=== PATIENT | female | born 1970 | race Caucasian/White ===

== ENCOUNTER 2019-07-26 07:08 | Emergency (ER) | payer MEDICAID ==
[~2019-07-26] VITALS: Ht 157.5 cm; Wt 93.0 kg
[2019-07-26 07:27] VITALS: BP 146/80
[2019-07-26] MEDS ORDERED: normal saline 1000ML IV soln IVB ONE (07:35)
[2019-07-26] MEDS ORDERED: ketorolac trometh. 30mg/ml inj. IV ONE (07:35)
[2019-07-26] MEDS ORDERED: ondansetron/PF 4mg/2ml inj IV ONE (07:35)
[2019-07-26 07:57] LABS: URINE HCG NEGATIVE (NEG)
[2019-07-26 08:04] LABS: ALANINE AMINOTRANSFERASE 63 U/L (12-78); ALBUMIN 3.5 G/DL (3.4-5.0); ALBUMIN/GLOBULIN RATIO 0.8 (1.1-1.5); ALKALINE PHOSPHATASE 81 IU/L (46-116); ANION GAP 9 (8-16); ASPARTATE AMINO TRANSFERASE 35 U/L (10-37); BILIRUBIN,TOTAL 0.3 MG/DL (0.1-1.0); BLOOD UREA NITROGEN 15 MG/DL (7-18); BUN/CREATININE RATIO 18.1 (6.6-38.0); CHLORIDE 105 MMOL/L (99-107); CREATININE 0.83 MG/DL (0.40-0.90); GLUCOSE 153 MG/DL (70-104); LIPASE 241 U/L (73-393); SODIUM 140 MMOL/L (135-145); TOTAL CARBON DIOXIDE 25.6 MMOL/L (24-32); TOTAL PROTEIN 7.7 G/DL (6.4-8.2); eGFR 73 ML/MIN
[2019-07-26 08:05] LABS: BASOPHILS # (AUTO) 0.1 X10'3 (0-0.2); BASOPHILS % (AUTO) 0.7 % (0-1); EOSINOPHILS # (AUTO) 0.1 X10'3 (0-0.9); EOSINOPHILS % (AUTO) 0.9 % (0-6); HEMATOCRIT 48.3 % (35.0-45.0); HEMOGLOBIN 16.2 g/dl (12.0-16.0); LYMPHOCYTES # (AUTO) 1.9 X10'3 (1.1-4.8); LYMPHOCYTES % (AUTO) 18.3 % (21-51); MEAN CORPUSCULAR HEMOGLOBIN 28.9 PG (27.0-31.0); MEAN CORPUSCULAR HGB CONC 33.5 g/dL (33.0-36.5); MEAN CORPUSCULAR VOLUME 86.3 FL (78-98); MEAN PLATELET VOLUME 8.6 FL (7.4-10.4); MONOCYTES # (AUTO) 0.7 X10'3 (0-0.9); MONOCYTES % (AUTO) 6.8 % (2-12); NEUTROPHILS # (AUTO) 7.5 X10'3 (1.8-7.7); NEUTROPHILS % (AUTO) 73.3 % (42-75); PLATELET COUNT 342 X10'3 (140-440); RED BLOOD COUNT 5.59 X10'6 (4.20-5.60); WHITE BLOOD COUNT 10.3 X10'3 (4.5-11.0)
[2019-07-26 08:16] LABS: COLOR,URINE YELLOW (Yellow); GLUCOSE, URINE NEGATIVE (Neg); KETONES,URINE NEGATIVE (Neg); LEUKOCYTE ESTERASE ,URINE NEGATIVE (Neg); NITRITES, URINE NEGATIVE (Neg); OCCULT BLOOD,URINE NEGATIVE (Neg); PROTEIN,URINE NEGATIVE (Neg); UROBILINOGEN,URINE 0.2 E.U/dL (0.2-1.0)
[2019-07-26 08:22] LABS: UA COLLECTION TYPE CLN CATCH MIDSTREAM
[2019-07-26 08:23] LABS: CLARITY,URINE SLIGHTLY CLOUDY (Clear)
[2019-07-26 08:32] LABS: SQUAMOUS EPITHELIAL CELL,UR MODERATE /LPF (FEW)
[2019-07-26 08:33] LABS: HYALINE CASTS 0-3 /LPF (NEGATIVE)
[2019-07-26 08:34] LABS: TRANSITIONAL EPI CELLS,URINE FEW /HPF
[2019-07-26 08:35] LABS: BACTERIA,URINE FEW /HPF (Neg); MUCUS STRANDS MODERATE /LPF (Neg); RBC,URINE 0-2 /HPF (0-2)
[2019-07-26 08:36] LABS: WBC,URINE 0-4 /HPF (0-4)
[2019-07-26] MEDS ORDERED: sucralfate 1gm/10ml UD suspension PO STA (09:30)
[2019-07-26] MEDS ORDERED: mag hydrox/Alum hydrox/simeth 30ml oral suspension PO ONE (09:30)
[2019-07-26] MEDS ORDERED: LIDOcaine Viscous 15ml cup MM ONE (09:30)
[2019-07-26] MEDS ORDERED: SUCR1TAB34 PO (09:38)
== END 2019-07-26 10:10 | disposition home or self-care (01) ==
LOC: ER 07:09
DX: K29.70 Gastritis, unspecified, without bleeding (principal); J45.909 Unspecified asthma, uncomplicated; F31.9 Bipolar disorder, unspecified; F12.90 Cannabis use, unspecified, uncomplicated; Z90.710 Acquired absence of both cervix and uterus; Z98.890 Other specified postprocedural states; Z88.8 Allergy status to other drugs, medicaments and biological substances; Z88.1 Allergy status to other antibiotic agents; Z91.040 Latex allergy status
CPT/HCPCS: 36415; 74176; 76700; 80053; 81001; 81025; 83690; 85025; 96374; 96375; 99285; J1885; J2405; J7030

== ENCOUNTER 2019-08-08 15:28 | Emergency (ER) | payer MEDICAID ==
[~2019-08-08] VITALS: Ht 157.5 cm; Wt 96.0 kg
[~2019-08-08 15:28] MED LIST: SUCR1TAB34 PO
[2019-08-08 16:12] VITALS: BP 138/66
--- NOTE | 2019-08-08 16:50 | NUR ---
ORTIZ, PATIENT'S RIDE CAN BE CALLED AT [phone]
[2019-08-08] MEDS ORDERED: proCHLORperazine 10 MG/2 ml inj IV ONE (17:50)
[2019-08-08] MEDS ORDERED: diphenhydrAMINE 50 mg/ml inj IV ONE (17:50)
[2019-08-08] MEDS ORDERED: normal saline 1000ml 1,000 ML IV ONE (17:50)
[2019-08-08] MEDS ORDERED: SUMA50TA PO (18:35)
== END 2019-08-08 19:22 | disposition home or self-care (01) ==
LOC: ER 15:28
DX: G43.909 Migraine, unspecified, not intractable, without status migrainosus (principal); J45.909 Unspecified asthma, uncomplicated; F31.9 Bipolar disorder, unspecified; F12.90 Cannabis use, unspecified, uncomplicated; Z90.710 Acquired absence of both cervix and uterus; Z98.890 Other specified postprocedural states; Z72.89 Other problems related to lifestyle; Z88.1 Allergy status to other antibiotic agents; Z88.8 Allergy status to other drugs, medicaments and biological substances; Z91.040 Latex allergy status; Z79.899 Other long term (current) drug therapy
CPT/HCPCS: 96361; 96374; 96375; 99284; J0780; J1200; J7030

== ENCOUNTER 2019-08-15 13:25 | Inpatient (IN) | payer MEDICAID ==
[~2019-08-15] VITALS: Ht 157.5 cm; Wt 101.6 kg
[~2019-08-15 13:25] MED LIST changes: +SUMA50TA PO
[2019-08-15 14:24] LABS: BASOPHILS % (AUTO) 0.3 % (0-1); EOSINOPHILS # (AUTO) 0.1 X10'3 (0-0.9); EOSINOPHILS % (AUTO) 0.8 % (0-6); HEMATOCRIT 42.5 % (35.0-45.0); HEMOGLOBIN 14.3 g/dl (12.0-16.0); LYMPHOCYTES # (AUTO) 1.9 X10'3 (1.1-4.8); LYMPHOCYTES % (AUTO) 13.2 % (21-51); MEAN CORPUSCULAR HGB CONC 33.6 g/dL (33.0-36.5); MEAN CORPUSCULAR VOLUME 89.2 FL (78-98); MEAN PLATELET VOLUME 8.4 FL (7.4-10.4); MONOCYTES # (AUTO) 0.6 X10'3 (0-0.9); MONOCYTES % (AUTO) 4.1 % (2-12); NEUTROPHILS # (AUTO) 11.8 X10'3 (1.8-7.7); NEUTROPHILS % (AUTO) 81.6 % (42-75); PLATELET COUNT 273 X10'3 (140-440); RED BLOOD COUNT 4.76 X10'6 (4.20-5.60); RED CELL DISTRIBUTION WIDTH 13.8 % (11.5-14.5); WHITE BLOOD COUNT 14.5 X10'3 (4.5-11.0)
[2019-08-15 14:39] LABS: ALANINE AMINOTRANSFERASE 57 U/L (12-78); ALBUMIN 3.4 G/DL (3.4-5.0); ALBUMIN/GLOBULIN RATIO 0.8 (1.1-1.5); ALKALINE PHOSPHATASE 79 IU/L (46-116); ANION GAP 9 (8-16); ASPARTATE AMINO TRANSFERASE 22 U/L (10-37); BILIRUBIN,TOTAL 0.3 MG/DL (0.1-1.0); BLOOD UREA NITROGEN 18 MG/DL (7-18); BUN/CREATININE RATIO 20.2 (6.6-38.0); CALCIUM 8.8 MG/DL (8.5-10.1); CHLORIDE 103 MMOL/L (99-107); CREATININE 0.89 MG/DL (0.40-0.90); GLUCOSE 216 MG/DL (70-104); POTASSIUM 3.8 MMOL/L (3.5-5.1); SODIUM 139 MMOL/L (135-145); TOTAL CARBON DIOXIDE 26.7 MMOL/L (24-32); TOTAL PROTEIN 7.6 G/DL (6.4-8.2); eGFR 67 ML/MIN
[2019-08-15] MEDS ORDERED: nitroGLYCERIN 0.4mg SUBLingual tab SL PRN ×3 (15:10→17:00)
[2019-08-15] MEDS ORDERED: aspirin 81mg tab.chew PO ONE (15:10)
[2019-08-15 15:42] LABS: CLARITY,URINE SLIGHTLY CLOUDY (Clear); COLOR,URINE STRAW (Yellow); GLUCOSE, URINE NEGATIVE (Neg); KETONES,URINE NEGATIVE (Neg); LEUKOCYTE ESTERASE ,URINE NEGATIVE (Neg); NITRITES, URINE NEGATIVE (Neg); OCCULT BLOOD,URINE NEGATIVE (Neg); PH,URINE 5.5 (4.8-8.0); PROTEIN,URINE NEGATIVE (Neg); UROBILINOGEN,URINE 0.2 E.U/dL (0.2-1.0)
[2019-08-15 15:49] LABS: D-DIMER 0.44 MG/L FEU (0-0.50)
[2019-08-15 15:49] LABS: URINE AMPHETAMINE SCREEN NEGATIVE (Neg); URINE BARBITUATE SCREEN NEGATIVE (Neg); URINE BENZODIAZEPINES SCREEN NEGATIVE (Neg); URINE CANNABINOID SCREEN POSITIVE (Neg); URINE COCAINE SCREEN NEGATIVE (Neg); URINE METHADONE SCREEN NEGATIVE (Neg); URINE OPIATE SCREEN NEGATIVE (Neg); URINE PHENCYCLIDINE SCREEN NEGATIVE (Neg)
[2019-08-15 15:50] LABS: UA COLLECTION TYPE CLN CATCH MIDSTREAM
[2019-08-15 15:51] LABS: SQUAMOUS EPITHELIAL CELL,UR MANY /LPF (FEW)
[2019-08-15 15:52] LABS: BACTERIA,URINE FEW /HPF (Neg); MUCUS STRANDS FEW /LPF (Neg); RBC,URINE 0-2 /HPF (0-2); WBC,URINE 0-4 /HPF (0-4)
[2019-08-15 15:53] LABS: CAL OXALATE CRYSTALS 1+ /HPF (NEGATIVE)
[2019-08-15] MEDS ORDERED: CefTRIAXone 2gm/D5W 50ml 50 ML IV ONE (16:00)
[2019-08-15] MEDS ORDERED: CefTRIAXone inj 2,000 MG in normal saline 100ml IV soln 100 ML IV ONE (16:05)
[2019-08-15] MEDS ORDERED: ONDA-103 PO (16:37)
[2019-08-15] MEDS ORDERED: CARI1.5C PO (16:37)
[2019-08-15] MEDS ORDERED: LISI-600 PO (16:37)
[2019-08-15] MEDS ORDERED: CLON-473 PO (16:37)
[2019-08-15] MEDS ORDERED: ALBU8.5H8 IH (16:37)
[2019-08-15] MEDS ORDERED: PANT40TA4 PO (16:37)
[2019-08-15] MEDS ORDERED: SERT50TA10 PO (16:37)
[2019-08-15] MEDS ORDERED: DOCU-267 PO (16:37)
[2019-08-15] MEDS ORDERED: PRAZ2CAP2 PO (16:37)
[2019-08-15] MEDS ORDERED: QUET100T33 PO (16:37)
[2019-08-15] MEDS ORDERED: ESTR1PAT82 TP (16:37)
[2019-08-15] MEDS ORDERED: SUMA50TA17 PO (16:37)
[2019-08-15] MEDS ORDERED: BECL10.62 INH (16:37)
[2019-08-15] MEDS ORDERED: magnesium 4gm in 100ml NS 100 ML IV PRN (17:00)
[2019-08-15] MEDS ORDERED: potassium Cl 20 mEq SR tablet PO PRN ×2 (17:00)
[2019-08-15] MEDS ORDERED: magnesium hydroxide 30ml (MOM) UD suspension PO PRN (17:00)
[2019-08-15] MEDS ORDERED: magnesium 2GM in 50ml NS 50 ML IV PRN (17:00)
[2019-08-15] MEDS ORDERED: regadenoson 0.4mg/5ml syringe IV ONE (17:00)
[2019-08-15] MEDS ORDERED: aminophylline 250mg/10ml inj. IV PRN (17:00)
[2019-08-15] MEDS ORDERED: acetaminophen 325mg tablet PO PRN ×2 (17:00)
[2019-08-15] MEDS ORDERED: magnesium Cl slow-release 64mg tablet PO PRN (17:00)
[2019-08-15] MEDS ORDERED: metoprolol tartrate 1mg/ml inj IV PRN (17:00)
[2019-08-15] MEDS ORDERED: morphine 2 MG/ML inj. syringe IV PRN ×2 (17:00)
[2019-08-15] MEDS ORDERED: potassium CL 10mEq/100ml bag 100 ML IV PRN ×2 (17:00)
[2019-08-15] MEDS ORDERED: ondansetron/PF 4mg/2ml inj IV PRN (17:00)
[2019-08-15] MEDS ORDERED: metoclopramide 5 mg/ml inj IV PRN (17:00)
[2019-08-15] MEDS ORDERED: mag hydrox/Alum hydrox/simeth 30ml oral suspension PO PRN (17:00)
[2019-08-15] MEDS: normal saline 1000ml 1,000 ML IV SCH (18:00)
[2019-08-15] MEDS ORDERED: SUMAtriptan 25 MG tablet PO PRN (18:35)
[2019-08-15] MEDS ORDERED: albuterol 2.5 MG/3 ML nebule NEB PRN (18:35)
[2019-08-15] MEDS ORDERED: non-formulary drug (Ondansetron HCl 1 TAB) PO PRN (18:35)
[2019-08-15] MEDS ORDERED: cloNIDine 0.1 mg tablet PO PRN (18:35)
[2019-08-15 19:01] LABS: H PYLORI ANTIBODY NEGATIVE (Neg)
--- NOTE | 2019-08-15 19:05 | NUR ---
Patient in room ED 9. I have received report from Huan SIN in ER and had the opportunity to ask questions and assume patient care. This pt will be going to room 3021S
--- NOTE | 2019-08-15 19:10 | NUR ---
Pt arrived on floor, stable with no chest pain at this time. Nasal swab collected, telemetry monitoring applied, Vital signs obtained T-99.0 HR- 81 o2- 95 RA R- 20 BP 159/91 left arm. Will continue to assess and monitor closely.
[2019-08-15] MEDS: docusate sod 100mg capsule PO SCH (19:45)
[2019-08-15] MEDS ORDERED: famotidine 20mg tablet PO SCH ×2 (20:00)
[2019-08-15] MEDS: K and/or MAG REPLACEMENT MC SCH (20:00)
[2019-08-15] MEDS: famotidine 10mg tablet PO SCH (20:22)
[2019-08-15] MEDS ORDERED: sertraline 50mg tablet PO SCH (21:00)
[2019-08-15] MEDS ORDERED: CARIPRAZINE 1.5 MG CAPSULE PO SCH (21:00)
[2019-08-15] MEDS ORDERED: budesonide 0.5mg/2ml UD nebule IH SCH (21:00)
[2019-08-15] MEDS ORDERED: prazosin 1mg capsule PO SCH (21:00)
[2019-08-15] MEDS ORDERED: temazepam 15mg capsule PO PRN (21:00)
[2019-08-15 22:00] VITALS: BP 112/61
[2019-08-16] VITALS (12 sets, daily range): BP systolic 92–136; BP diastolic 42–79
[2019-08-16] MEDS: HYDROcodone/acetaminophen 5mg/325mg tablet PO PRN ×2 (00:47→04:55)
[2019-08-16 01:38] LABS: HEMATOCRIT 37.9 % (35.0-45.0); HEMOGLOBIN 12.9 g/dl (12.0-16.0); MEAN CORPUSCULAR HEMOGLOBIN 30.3 PG (27.0-31.0); MEAN CORPUSCULAR HGB CONC 34.1 g/dL (33.0-36.5); MEAN CORPUSCULAR VOLUME 88.8 FL (78-98); MEAN PLATELET VOLUME 8.2 FL (7.4-10.4); PLATELET COUNT 234 X10'3 (140-440); RED BLOOD COUNT 4.27 X10'6 (4.20-5.60); RED CELL DISTRIBUTION WIDTH 13.8 % (11.5-14.5); WHITE BLOOD COUNT 8.7 X10'3 (4.5-11.0)
[2019-08-16 01:50] LABS: ALBUMIN 3.1 G/DL (3.4-5.0); ANION GAP 9 (8-16); BLOOD UREA NITROGEN 17 MG/DL (7-18); BUN/CREATININE RATIO 23.3 (6.6-38.0); CALCIUM 8.2 MG/DL (8.5-10.1); CHLORIDE 104 MMOL/L (99-107); CHOL/HDL RATIO 6.8 (0.00-4.99); CHOLESTEROL 243 MG/DL (0-200); CREATININE 0.73 MG/DL (0.40-0.90); GLUCOSE 115 MG/DL (70-104); HDL CHOLESTEROL 36 MG/DL (35-60); LDL CHOLESTEROL 106 MG/DL (50-100); MAGNESIUM 1.7 MG/DL (1.5-2.4); POTASSIUM 3.9 MMOL/L (3.5-5.1); SODIUM 140 MMOL/L (135-145); TRIGLYCERIDES 472 MG/DL (20-135); eGFR 85 ML/MIN
[2019-08-16] MEDS: normal saline 1000ml 1,000 ML IV SCH ×2 (02:57→10:35)
--- NOTE | 2019-08-16 06:15 | NUR ---
Patient in room PCU 3027. I have received report from Selam SIN and had the opportunity to ask questions and assume patient care.
--- NOTE | 2019-08-16 06:26 | NUR ---
Problems reprioritized. Patient report given, questions answered & plan of care reviewed with Darline Trent and Shelby TRENT.
[2019-08-16] MEDS ORDERED: pantoprazole 40mg Tablet.DR PO SCH (07:30)
[2019-08-16] MEDS ORDERED: lisinopril 20mg tablet PO SCH (08:00)
[2019-08-16] MEDS ORDERED: quetiapine 100mg tablet PO SCH (08:00)
[2019-08-16] MEDS: K and/or MAG REPLACEMENT MC SCH ×2 (08:00→10:35)
[2019-08-16] MEDS ORDERED: enoxaparin 40mg/0.4ml syringe SUBCUT SCH (08:00)
[2019-08-16] MEDS ORDERED: aspirin 325mg tablet PO SCH (08:30)
--- NOTE | 2019-08-16 08:56 | NUR ---
Patient down to stress test via wheelcahir and Nurse. Tele aware, pt SL.
--- NOTE | 2019-08-16 10:21 | NUR ---
Patient return from stress test. Pt states a headache 08/16. VS: BP:131/48 O2 93%RA, HR:84, Temp:97.8 oral. Patient stable and a/0 X4. Am medications were given. Will continue to monitor.
[2019-08-16] MEDS: famotidine 10mg tablet PO SCH (10:28)
[2019-08-16] MEDS: docusate sod 100mg capsule PO SCH (10:30)
--- NOTE | 2019-08-16 10:45 | NUR ---
Paged Echo Re: MarbinMatthew Tim RM [id number]. LUISAI Echo order pt is back in room. Thank you Darline [phone]
--- NOTE | 2019-08-16 12:28 | NUR ---
Dr. Gautam at bedside with patient and nurse. New orders to cancel ultra sound of abd, and to add A1C to blood test. Will continue to monitor. After results of echo and matilde and it is reviewed patient can eat. Will continue to monitor.
[2019-08-16 13:08] LABS: HEMOGLOBIN A1C 6.6 % (4.5-6.2)
--- NOTE | 2019-08-16 13:42 | NUR ---
Dr. Gautam on phone with results of stress and Echo. Patient's stress test negative and Echo normal. Dr is OK to discharge, Patient is able to eat reg diet food. Will continue to monitor.
--- NOTE | 2019-08-16 15:06 | NUR ---
Dr ANN to discharge, Patient was given all discharge instructions and was told to stay away from NSAIDS. IV was Dcd and Tele was removed and returned. Pharmacy meds were picked up and given to patient. All patient items were collected and stayed with patient upon discharge. Patient was able to walk to front lobby with RN into a private vehicle.
== END 2019-08-16 15:27 | disposition home or self-care (01) | DRG 198 ==
LOC: ER 13:25 → ED HOLD 16:57 → PCU 3S 19:05 → OBSVTOIN 08-16 08:30
PROVIDERS: ADMIT Family Medicine; ATTEND Family Medicine
PROC: 4A02XM4 Measurement of Cardiac Total Activity, External Approach (ICD-10-PCS; principal; 2019-08-16)
PROC: 3E033HZ Introduction of Radioactive Substance into Peripheral Vein, Percutaneous Approach (ICD-10-PCS; 2019-08-16)
DX: I20.8 Other forms of angina pectoris (principal); F31.9 Bipolar disorder, unspecified; F41.1 Generalized anxiety disorder; F43.10 Post-traumatic stress disorder, unspecified; G47.33 Obstructive sleep apnea (adult) (pediatric); I10 Essential (primary) hypertension; I20.9 Angina pectoris, unspecified; J44.9 Chronic obstructive pulmonary disease, unspecified; Z90.710 Acquired absence of both cervix and uterus; Z79.899 Other long term (current) drug therapy; K21.9 Gastro-esophageal reflux disease without esophagitis
CPT/HCPCS: 36415; 71045; 78452; 80048; 80053; 80061; 80305; 81001; 83036; 83735; 84145; 84443; 84484; 85025; 85027; 85379; 86677; 87081; 87635; 93005; 93017; 93306; 94640; 94760; 99285; A9500; G0378; J0696; J1650; J2405; J2785; J7030; J7626

== ENCOUNTER 2019-09-03 13:39 | Emergency (ER) | payer MEDICAID ==
[~2019-09-03] VITALS: Ht 165.1 cm; Wt 100.9 kg
[~2019-09-03 13:39] MED LIST changes: +ALBU8.5H8 IH; +BECL10.62 INH; +CARI1.5C PO; +CLON-473 PO; +DOCU-267 PO; +ESTR1PAT82 TP; +LISI-600 PO; +ONDA-103 PO; +PANT40TA4 PO; +PRAZ2CAP2 PO; +QUET100T33 PO; +SERT50TA10 PO; -SUCR1TAB34 PO; -SUMA50TA PO; +SUMA50TA17 PO
[2019-09-03 14:46] LABS: BASOPHILS # (AUTO) 0.1 X10'3 (0-0.2); BASOPHILS % (AUTO) 0.5 % (0-1); EOSINOPHILS # (AUTO) 0.2 X10'3 (0-0.9); EOSINOPHILS % (AUTO) 1.4 % (0-6); HEMOGLOBIN 13.6 g/dl (12.0-16.0); LYMPHOCYTES # (AUTO) 2.4 X10'3 (1.1-4.8); LYMPHOCYTES % (AUTO) 21.8 % (21-51); MEAN CORPUSCULAR HEMOGLOBIN 29.5 PG (27.0-31.0); MEAN CORPUSCULAR HGB CONC 33.2 g/dL (33.0-36.5); MEAN CORPUSCULAR VOLUME 88.9 FL (78-98); MEAN PLATELET VOLUME 8.1 FL (7.4-10.4); MONOCYTES # (AUTO) 0.8 X10'3 (0-0.9); MONOCYTES % (AUTO) 7.3 % (2-12); NEUTROPHILS # (AUTO) 7.7 X10'3 (1.8-7.7); PLATELET COUNT 284 X10'3 (140-440); RED BLOOD COUNT 4.62 X10'6 (4.20-5.60); RED CELL DISTRIBUTION WIDTH 14.2 % (11.5-14.5); WHITE BLOOD COUNT 11.2 X10'3 (4.5-11.0)
[2019-09-03 15:08] LABS: ALANINE AMINOTRANSFERASE 51 U/L (12-78); ALBUMIN 3.2 G/DL (3.4-5.0); ALBUMIN/GLOBULIN RATIO 0.8 (1.1-1.5); ALKALINE PHOSPHATASE 83 IU/L (46-116); ANION GAP 9 (8-16); ASPARTATE AMINO TRANSFERASE 22 U/L (10-37); BILIRUBIN,TOTAL 0.2 MG/DL (0.1-1.0); BLOOD UREA NITROGEN 16 MG/DL (7-18); BUN/CREATININE RATIO 23.9 (6.6-38.0); CALCIUM 8.6 MG/DL (8.5-10.1); CHLORIDE 104 MMOL/L (99-107); CREATININE 0.67 MG/DL (0.40-0.90); GLUCOSE 143 MG/DL (70-104); POTASSIUM 4.1 MMOL/L (3.5-5.1); SODIUM 138 MMOL/L (135-145); TOTAL CARBON DIOXIDE 24.7 MMOL/L (24-32); TOTAL PROTEIN 7.2 G/DL (6.4-8.2); eGFR > 90 ML/MIN
[2019-09-03] MEDS ORDERED: proCHLORperazine 10 MG/2 ml inj IV ONE (15:30)
[2019-09-03] MEDS ORDERED: diphenhydrAMINE 50 mg/ml inj IV ONE (15:30)
[2019-09-03 17:26] VITALS: BP 152/75
== END 2019-09-03 17:28 | disposition home or self-care (01) ==
LOC: ER 13:39
DX: G43.909 Migraine, unspecified, not intractable, without status migrainosus (principal); R07.89 Other chest pain; R20.0 Anesthesia of skin; J45.909 Unspecified asthma, uncomplicated; K21.9 Gastro-esophageal reflux disease without esophagitis; G47.30 Sleep apnea, unspecified; F41.9 Anxiety disorder, unspecified; F31.9 Bipolar disorder, unspecified; E11.9 Type 2 diabetes mellitus without complications; F12.90 Cannabis use, unspecified, uncomplicated; F15.90 Other stimulant use, unspecified, uncomplicated; Z90.710 Acquired absence of both cervix and uterus; Z98.890 Other specified postprocedural states; Z72.89 Other problems related to lifestyle; Z91.09 Other allergy status, other than to drugs and biological substances; Z88.1 Allergy status to other antibiotic agents; Z88.8 Allergy status to other drugs, medicaments and biological substances; Z79.899 Other long term (current) drug therapy
CPT/HCPCS: 36415; 71045; 80053; 83880; 84484; 85025; 93005; 96374; 96375; 99285; J0780; J1200

== ENCOUNTER 2019-09-16 15:07 | Emergency (ER) | payer MEDICAID ==
[~2019-09-16] VITALS: Ht 157.5 cm; Wt 97.3 kg
[2019-09-16 15:21] VITALS: BP 131/74
[2019-09-16] MEDS ORDERED: ibuprofen tablet 400 MG TABLET PO ONE (15:35)
[2019-09-16] MEDS ORDERED: OFLO5DRO5 RIGHT EAR (15:43)
[2019-09-16] MEDS ORDERED: IBUP-1984 PO (15:43)
== END 2019-09-16 15:53 | disposition home or self-care (01) ==
LOC: ER 15:07
DX: H60.91 Unspecified otitis externa, right ear (principal); J45.909 Unspecified asthma, uncomplicated; G47.30 Sleep apnea, unspecified; K21.9 Gastro-esophageal reflux disease without esophagitis; E11.9 Type 2 diabetes mellitus without complications; F41.9 Anxiety disorder, unspecified; F31.9 Bipolar disorder, unspecified; F12.90 Cannabis use, unspecified, uncomplicated; F15.90 Other stimulant use, unspecified, uncomplicated; Z90.710 Acquired absence of both cervix and uterus; Z98.890 Other specified postprocedural states; Z91.048 Other nonmedicinal substance allergy status; Z88.1 Allergy status to other antibiotic agents; Z88.8 Allergy status to other drugs, medicaments and biological substances; Z79.2 Long term (current) use of antibiotics; Z79.899 Other long term (current) drug therapy
CPT/HCPCS: 99283

== ENCOUNTER 2019-09-18 13:26 | Emergency (ER) | payer MEDICAID ==
[~2019-09-18] VITALS: Ht 157.5 cm; Wt 97.3 kg
[~2019-09-18 13:26] MED LIST changes: +IBUP-1984 PO; +OFLO5DRO5 RIGHT EAR
[2019-09-18 13:28] VITALS: BP 142/72
[2019-09-18] MEDS ORDERED: PERM60CR19 TP (13:42)
== END 2019-09-18 13:59 | disposition home or self-care (01) ==
LOC: ER 13:27
DX: B86 Scabies (principal); G43.909 Migraine, unspecified, not intractable, without status migrainosus; J45.909 Unspecified asthma, uncomplicated; K21.9 Gastro-esophageal reflux disease without esophagitis; E11.9 Type 2 diabetes mellitus without complications; F41.9 Anxiety disorder, unspecified; F31.9 Bipolar disorder, unspecified; F12.90 Cannabis use, unspecified, uncomplicated; F15.90 Other stimulant use, unspecified, uncomplicated; Z90.710 Acquired absence of both cervix and uterus; Z98.890 Other specified postprocedural states; Z72.89 Other problems related to lifestyle; Z88.1 Allergy status to other antibiotic agents; Z88.8 Allergy status to other drugs, medicaments and biological substances; Z79.2 Long term (current) use of antibiotics; Z79.899 Other long term (current) drug therapy
CPT/HCPCS: 99283